=== PATIENT | female | born 1965 | race Caucasian/White ===

== ENCOUNTER 2024-01-11 22:45 | Inpatient (IN) | payer OTHER, SELFPAY ==
[2024-01-11 23:14] VITALS: BP 147/80; PULSE 82; RESP 16; TEMP 36.7; O2SAT 95; BMI 32.1
[2024-01-12 00:16] VITALS: BMI 32.1
[2024-01-12] MEDS: buPROPion (SR) 150 MG Tablet.SA PO ×3 (00:22→20:59)
[2024-01-12] MEDS: Magnesium Chloride 64 MG Delay Rel.Tablet 128 MG PO ×3 (00:22→20:58)
[2024-01-12] MEDS: APIXABAN 2.5 MG TABLET (WCH) PO ×3 (00:23→20:58)
[2024-01-12] MEDS: HYDROcodone Bitartrate/Apap 5/325 Tablet PO ×4 (00:26→20:57)
[2024-01-12 05:58] LABS: Hematocrit 29.4 % (37-47); Hemoglobin 9.4 g/dL (12.0-15.0); Mean Corpuscular Hgb 30.6 pg (27.0-32.0); Mean Corpuscular Volume 95.8 fL (81-99); Mean Platelet Vol. 10.9 fl (6.2-12.0); Platelet Count 172 K/mm3 (150-450); RBC Distribution Width CV 12.9 % (11.6-14.6); RBC Distribution Width SD 44.3 fl (35.1-43.9); Red Blood Count 3.07 M/mm3 (4.2-5.4); White Blood Count 4.6 K/mm3 (4.4-11.0)
[2024-01-12 06:00] VITALS: BP 119/58; PULSE 78; RESP 16; TEMP 36.1; O2SAT 93
[2024-01-12 07:07] LABS: AST(SGOT) 18 U/L (15-37); Alanine Aminotransfer ALT/SGPT 15 U/L (13-56); Albumin, Serum 2.9 g/dL (3.2-5.0); Alkaline Phosphatase 46 U/L (45-117); Anion Gap 4 (5-15); BUN 13 mg/dL (7-18); BUN/Creat Ratio 18.3 RATIO (10-20); Calcium,Total 8.4 mg/dL (8.5-10.1); Chloride 110 mmol/L (98-107); Creatinine, Serum 0.71 mg/dL (0.55-1.02); EST Glomerular Filtration Rate 90 mL/min (>60); Est Glom Filt Rate - Afr Amer 109 mL/min (>60); Estimated Creatinine Clearance 95.45 ml/min; Globulin 2.9 g/dL (2.2-4.2); Glucose 97 mg/dL (74-106); Phosphorus 3.1 mg/dL (2.5-4.9); Potassium 3.3 mmol/L (3.5-5.1); Protein, Total 5.8 g/dL (6.4-8.2); Sodium Level 142 mmol/L (136-145)
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
[2024-01-12] MEDS: Senna/Docusate Sodium 1 Tablet 2 TABLET PO (08:27)
[2024-01-12] MEDS: Pantoprazole Sodium 40 MG Tablet PO (08:27)
[2024-01-12] MEDS: Calcium Carb/Vitamin D 1 TABLET Tablet PO (08:27)
[2024-01-12] MEDS: Potassium Chloride Oral Tablet 20 MEQ 40 MEQ PO (08:39)
--- NOTE | 2024-01-12 15:58 | PCM.RU.PYE ---
Admission Information Primary Diagnosis:: Left open tibia fracture, left distal radius fracture. Status Changes from Prescreening?: No changes Identified Actual Problem List:: Skin Intergrity, Pain, ALteration in Cmfrt, Alteration in Nutrition, Mobility Impaired, Ineffective Communication, Know.Dfct/Disease Process, Know.Dfct of Medicaitons and Alteration-Leisure Activ. Potential Problem List:: DVT, Bleeding, Infection, UTI, Aspiration, Falls, Skin Integrity and Depression Risk of Complications DVT: LMWH Bleeding: Monitor Lab Values, Nursing to Teach Precautions for anti-coagulation therapy., Wound, if applicable, to be assessed every shift. and Stroke patients assessed for lethargy or change in status. Infection: Clinical Staff to Monitor for S/S of infection: and S/S of infection include fever, redness, warmth, etc. Urinary Tract Infection: Monitor for frequency, burning, discomfort, or incontinence. and Nursing will obtain urine sample for urinalysis and C&S when ordered. Aspiration: Clinical staff will monitor for coughing, drooling, congestion., Speech will evaluate swallowing and dsyphasia. and Nursing will monitor patient swallowing during meals. Falls: Patient will be evaluated for Fall Precautions and Patient will be placed on Fall Precautions as indicated per protocol. Skin Breakdown: Nursing will assess skin daily using assessment tool. and Nursing will place on Skin Breakdown Precautions as indicated. Pain: Clinical staff will assess patient's pain level per protocol., Medications will be given, if needed, and the pain level reassessed. and Other methods: Massage, distraction, decrease stimulus, etc. used PRN. Plan of Care Patient requires physician specializing in physical medicine and rehab oversight to provide close medical supervision of rehab issues including: Pain Management, Sleep Problems, Bowel and Bladder, Medical and co-morbidity Management, DVT prophylaxis, Rehabilitation Leadership and Coordination of treatment team Patient needs Physical Therapy: At least 5 out of 7 days and For a minimum of 1.5 hrs Patient needs Physical Therapy to improve:: Mobility, Strengthening, Transfers, Stretching, ROM, Endurance, Stairs, Gait and Balance Patient needs Occupational Therapy: At least 5 out of 7 days and For a minimum of 1.5 hrs Patient needs Occupational Therapy to improve ADL's incl.: Eating, Grooming, Bathing, Dressing, Toileting, Toilet transfers, Community Reintegration, Higher functioning activities, Household tasks, Adaptive Equipment, Splinting and Other activities as determined Patient requires 24/7 Rehabilitation Nursing for: Pain Issues, Identifying and preventing risk factors, Monitoring and reporting current medical conditions, Assisting with ambulation, transfer, and all ADL's, Teaching patients about disease process and medications, Family teaching, Providing safe environment, Bowel and Bladder Issues, Skin integrity and Medication Management Patient needs Management Department Chair/ Case Management for: Discharge Planning, Arranging Home Equipment or Services and Family Interventions Patient needs Dietary and Nutrition Services for: Adequate Nutrition, Nutritional Supplements and Nutritional Education Goals Goals Patient will remain: free from falls and or injury at time of discharge. Patient will complete upper body dressing at: - (Set up.) Patient will complete lower body dressing at: - (Set up with AE.) Patient will complete toilet transfer at: - (Sup.) Patient will complete toileting at: - (Sup.) Patient will perform bathing at: - (Min A.) Patient will perform Tub/Shower transfer at: - (Sup.) Patient will complete grooming at: - (Set up.) Patient's skin will: remain intact and free from infection. Patient will receive: adequate nutrition. Discharge Planning Pt Prognosis for Sig. Practical Improv. w/in Reasonable Time: Good Estimated Length of stay (days): 21 Anticipated D/C Destination: Home with Outpt Therapy Was Preadmission Assessment Accurate?: Yes
[2024-01-12 17:09] VITALS: BP 131/73; PULSE 75; RESP 17; TEMP 36.1; O2SAT 97
[2024-01-13 06:00] VITALS: BP 134/79; PULSE 70; RESP 16; TEMP 36.3; O2SAT 92
[2024-01-13 07:45] LABS: Anion Gap 6 (5-15); BUN 14 mg/dL (7-18); BUN/Creat Ratio 18.2 RATIO (10-20); Calcium,Total 9.3 mg/dL (8.5-10.1); Chloride 105 mmol/L (98-107); Creatinine, Serum 0.77 mg/dL (0.55-1.02); EST Glomerular Filtration Rate 82 mL/min (>60); Est Glom Filt Rate - Afr Amer 100 mL/min (>60); Estimated Creatinine Clearance 88.01 ml/min; Glucose 111 mg/dL (74-106); Potassium 3.9 mmol/L (3.5-5.1); Sodium Level 138 mmol/L (136-145)
[2024-01-13] MEDS: Calcium Carb/Vitamin D 1 TABLET Tablet PO (07:53)
[2024-01-13] MEDS: Pantoprazole Sodium 40 MG Tablet PO (07:53)
[2024-01-13] MEDS: Magnesium Chloride 64 MG Delay Rel.Tablet 128 MG PO ×2 (07:53→20:13)
[2024-01-13] MEDS: APIXABAN 2.5 MG TABLET (WCH) PO ×2 (07:53→20:12)
[2024-01-13] MEDS: buPROPion (SR) 150 MG Tablet.SA PO ×2 (07:53→20:13)
[2024-01-13] MEDS: HYDROcodone Bitartrate/Apap 5/325 Tablet PO ×3 (07:56→20:01)
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
[2024-01-13] MEDS: NYSTATIN 500,000 UNIT/5 ML UDC 500000 UNIT PO ×4 (10:30→20:13)
--- NOTE | 2024-01-13 15:09 | CASEMGMT ---
Social Work Completed advanced directives with pt. HCPOA and LW copies placed on chart. Original and copy provided to pt. Patricia Kent ,CONSULTANT MUSIC GRAPHER
[2024-01-13 17:04] VITALS: BP 90/58; PULSE 83; RESP 16; TEMP 36.4; O2SAT 94
[2024-01-13] MEDS: Senna/Docusate Sodium 1 Tablet 2 TABLET PO (20:13)
[2024-01-13 22:00] VITALS: PULSE 83; RESP 16; O2SAT 94
[2024-01-14 06:28] VITALS: BP 112/54; PULSE 82; RESP 15; TEMP 36.4; O2SAT 95
[2024-01-14 06:58] VITALS: O2SAT 94
[2024-01-14] MEDS: APIXABAN 2.5 MG TABLET (WCH) PO ×2 (09:49→20:18)
[2024-01-14] MEDS: Pantoprazole Sodium 40 MG Tablet PO (09:49)
[2024-01-14] MEDS: buPROPion (SR) 150 MG Tablet.SA PO ×2 (09:49→20:18)
[2024-01-14] MEDS: Calcium Carb/Vitamin D 1 TABLET Tablet PO (09:49)
[2024-01-14] MEDS: Magnesium Chloride 64 MG Delay Rel.Tablet 128 MG PO ×2 (09:49→20:18)
[2024-01-14] MEDS: HYDROcodone Bitartrate/Apap 5/325 Tablet PO ×3 (09:50→20:17)
[2024-01-14] MEDS: NYSTATIN 500,000 UNIT/5 ML UDC 500000 UNIT PO ×4 (09:51→20:18)
[2024-01-14] MEDS: Senna/Docusate Sodium 1 Tablet 2 TABLET PO ×2 (09:52→20:18)
[2024-01-14 18:00] VITALS: BP 105/67; PULSE 76; RESP 16; TEMP 37.2; O2SAT 96
[2024-01-14 20:06] VITALS: PULSE 76; RESP 16; O2SAT 95
[2024-01-15 06:00] VITALS: BP 94/61; PULSE 82; RESP 16; TEMP 36.8; O2SAT 95
[2024-01-15] MEDS: Senna/Docusate Sodium 1 Tablet 2 TABLET PO (07:45)
[2024-01-15] MEDS: APIXABAN 2.5 MG TABLET (WCH) PO ×2 (07:45→21:49)
[2024-01-15] MEDS: Magnesium Chloride 64 MG Delay Rel.Tablet 128 MG PO ×2 (07:45→21:48)
[2024-01-15] MEDS: Calcium Carb/Vitamin D 1 TABLET Tablet PO (07:46)
[2024-01-15] MEDS: buPROPion (SR) 150 MG Tablet.SA PO ×2 (07:46→21:48)
[2024-01-15] MEDS: Pantoprazole Sodium 40 MG Tablet PO (07:46)
[2024-01-15 08:01] VITALS: O2SAT 95
[2024-01-15] MEDS: HYDROcodone Bitartrate/Apap 5/325 Tablet PO ×3 (09:24→21:49)
[2024-01-15] MEDS: NYSTATIN 500,000 UNIT/5 ML UDC 500000 UNIT PO ×4 (09:25→21:48)
[2024-01-15 19:18] VITALS: BP 112/69; PULSE 85; RESP 16; TEMP 36.6; O2SAT 97
[2024-01-15 19:55] VITALS: PULSE 83; RESP 16; O2SAT 97
[2024-01-16 06:00] VITALS: BP 116/82; PULSE 86; RESP 18; TEMP 36.6; O2SAT 96
[2024-01-16] MEDS: Magnesium Chloride 64 MG Delay Rel.Tablet 128 MG PO ×2 (07:33→19:58)
[2024-01-16] MEDS: NYSTATIN 500,000 UNIT/5 ML UDC 500000 UNIT PO ×4 (07:33→19:59)
[2024-01-16] MEDS: Pantoprazole Sodium 40 MG Tablet PO (07:33)
[2024-01-16] MEDS: buPROPion (SR) 150 MG Tablet.SA PO ×2 (07:33→19:59)
[2024-01-16] MEDS: HYDROcodone Bitartrate/Apap 5/325 Tablet PO ×3 (07:33→19:59)
[2024-01-16] MEDS: APIXABAN 2.5 MG TABLET (WCH) PO ×2 (07:33→19:59)
[2024-01-16] MEDS: Calcium Carb/Vitamin D 1 TABLET Tablet PO (07:33)
--- NOTE | 2024-01-16 08:47 | CASEMGMT ---
Social Work IDT met with patient and for Team meeting. Discussed patient's progress in PT/OT/SN. Educated to O CM Insurance with [employer] 01/16 and continued stay is not guaranteed with each review. is getting a ramp installed for the entry steps. Pt can remain on the main level. Recommending w/c, left platform FWW, and BSC. Pt nor MIL has these and will need coordinated at [place]. to purchase half bedside rail for home. asking multiple questions to prepare for home and ensure pt can complete tasks. 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 SW offered HHC vs OP therapy. Pt prefers HHC. SW to provide list of options and will coordinate DME needs through [facility]. SW sent referral to [facility] for all DME via [employer], to check on insurance coverage for both platform walker and w/c. Will continue to follow and will ReTeam weekly. IDT is recommending continued stay to optimize functional abilities since does work full-time. Patricia Kent RN PERITONEAL DIALYSIS WASH HELPER
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
--- NOTE | 2024-01-16 16:05 | RAD_ITS ---
STUDY: X-RAY - LEFT TIBIA AND FIBULA REASON FOR EXAM: Female, 58 years old. L tibia ORIF f/u TECHNIQUE: 2 view(s) of the tibia and fibula were obtained. COMPARISON: None. FINDINGS: An intramedullary sadie is seen along the tibia. Distal tibial fracture is in anatomic alignment and position. Fractures of the proximal and distal fibula, and near anatomic alignment and position. The soft tissue structures are unremarkable. RAD/Tibia & Fibula 2 Views IMPRESSION: Fractures of the distal tibia in anatomic alignment and position status post ORIF. Electronically Signed: Jean-Claude Dunbar MD at 16:49 EDT ,
[2024-01-16 18:00] VITALS: BP 123/70; PULSE 80; RESP 18; TEMP 36.3; O2SAT 96
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
[2024-01-17 06:00] VITALS: BP 112/75; PULSE 85; RESP 18; TEMP 36.4; O2SAT 97
[2024-01-17] MEDS: HYDROcodone Bitartrate/Apap 5/325 Tablet PO ×2 (06:12→14:26)
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
[2024-01-17] MEDS: buPROPion (SR) 150 MG Tablet.SA PO ×2 (10:37→21:35)
[2024-01-17] MEDS: Pantoprazole Sodium 40 MG Tablet PO (10:37)
[2024-01-17] MEDS: Calcium Carb/Vitamin D 1 TABLET Tablet PO (10:37)
[2024-01-17] MEDS: Magnesium Chloride 64 MG Delay Rel.Tablet 128 MG PO ×2 (10:37→21:35)
[2024-01-17] MEDS: NYSTATIN 500,000 UNIT/5 ML UDC 500000 UNIT PO ×4 (10:37→21:35)
[2024-01-17] MEDS: APIXABAN 2.5 MG TABLET (WCH) PO ×2 (10:38→21:35)
--- NOTE | 2024-01-17 11:02 | NURSING ---
Called Dr. Kay's office to update him that X-rays were completed. Left message with medical office receptionist assistant.
[2024-01-17 18:00] VITALS: BP 105/58; PULSE 79; RESP 16; TEMP 36.6; O2SAT 96
[2024-01-18 05:55] VITALS: BP 90/40; PULSE 79; RESP 18; TEMP 36.6; O2SAT 95
[2024-01-18 06:00] VITALS: BMI 32.1
[2024-01-18] MEDS: HYDROcodone Bitartrate/Apap 5/325 Tablet PO ×3 (06:01→21:53)
[2024-01-18] MEDS: NYSTATIN 500,000 UNIT/5 ML UDC 500000 UNIT PO ×3 (07:57→20:07)
[2024-01-18] MEDS: Pantoprazole Sodium 40 MG Tablet PO (07:58)
[2024-01-18] MEDS: Calcium Carb/Vitamin D 1 TABLET Tablet PO (07:58)
[2024-01-18] MEDS: buPROPion (SR) 150 MG Tablet.SA PO ×2 (07:58→20:08)
[2024-01-18] MEDS: APIXABAN 2.5 MG TABLET (WCH) PO ×2 (07:58→20:06)
[2024-01-18] MEDS: Magnesium Chloride 64 MG Delay Rel.Tablet 128 MG PO ×2 (07:58→20:07)
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
[2024-01-18 17:54] VITALS: BP 93/47; PULSE 82; RESP 16; TEMP 36.6; O2SAT 99
[2024-01-19 06:00] VITALS: BP 125/63; PULSE 66; RESP 16; TEMP 36.7; O2SAT 96
[2024-01-19] MEDS: buPROPion (SR) 150 MG Tablet.SA PO ×2 (08:25→21:16)
[2024-01-19] MEDS: APIXABAN 2.5 MG TABLET (WCH) PO ×2 (08:25→21:17)
[2024-01-19] MEDS: NYSTATIN 500,000 UNIT/5 ML UDC 500000 UNIT PO ×4 (08:25→21:15)
[2024-01-19] MEDS: Magnesium Chloride 64 MG Delay Rel.Tablet 128 MG PO ×2 (08:26→21:15)
[2024-01-19] MEDS: Calcium Carb/Vitamin D 1 TABLET Tablet PO (08:26)
[2024-01-19] MEDS: Pantoprazole Sodium 40 MG Tablet PO (08:26)
[2024-01-19] MEDS: HYDROcodone Bitartrate/Apap 5/325 Tablet PO ×3 (08:30→21:16)
[2024-01-19 18:00] VITALS: BP 119/76; PULSE 85; RESP 16; TEMP 36.8; O2SAT 96
[2024-01-19 20:25] VITALS: PULSE 85; RESP 16; O2SAT 96
[2024-01-20 06:00] VITALS: BP 140/78; PULSE 71; RESP 16; TEMP 36.3; O2SAT 96
[2024-01-20] MEDS: Magnesium Chloride 64 MG Delay Rel.Tablet 128 MG PO ×2 (07:47→21:27)
[2024-01-20] MEDS: NYSTATIN 500,000 UNIT/5 ML UDC 500000 UNIT PO ×4 (07:47→21:27)
[2024-01-20] MEDS: Calcium Carb/Vitamin D 1 TABLET Tablet PO (07:47)
[2024-01-20] MEDS: Pantoprazole Sodium 40 MG Tablet PO (07:47)
[2024-01-20] MEDS: buPROPion (SR) 150 MG Tablet.SA PO ×2 (07:47→21:27)
[2024-01-20] MEDS: APIXABAN 2.5 MG TABLET (WCH) PO ×2 (07:47→21:27)
[2024-01-20] MEDS: HYDROcodone Bitartrate/Apap 5/325 Tablet PO ×4 (07:50→21:27)
[2024-01-20 18:00] VITALS: BP 91/57; PULSE 79; RESP 17; TEMP 36.1; O2SAT 96
[2024-01-20 22:00] VITALS: PULSE 76; RESP 16; O2SAT 96
[2024-01-21 05:40] VITALS: BP 126/64; PULSE 67; RESP 16; TEMP 36.7; O2SAT 97
[2024-01-21] MEDS: Magnesium Chloride 64 MG Delay Rel.Tablet 128 MG PO ×2 (08:05→21:41)
[2024-01-21] MEDS: APIXABAN 2.5 MG TABLET (WCH) PO ×2 (08:05→21:41)
[2024-01-21] MEDS: Calcium Carb/Vitamin D 1 TABLET Tablet PO (08:05)
[2024-01-21] MEDS: Pantoprazole Sodium 40 MG Tablet PO (08:05)
[2024-01-21] MEDS: buPROPion (SR) 150 MG Tablet.SA PO ×2 (08:05→22:22)
[2024-01-21] MEDS: NYSTATIN 500,000 UNIT/5 ML UDC 500000 UNIT PO ×4 (08:05→21:40)
[2024-01-21 17:28] VITALS: BP 109/62; PULSE 80; RESP 16; TEMP 36.2; O2SAT 98
[2024-01-21] MEDS: HYDROcodone Bitartrate/Apap 5/325 Tablet PO (21:41)
[2024-01-22 06:00] VITALS: BP 112/59; PULSE 76; RESP 17; TEMP 36.7; O2SAT 99
[2024-01-22] MEDS: APIXABAN 2.5 MG TABLET (WCH) PO ×2 (07:46→21:51)
[2024-01-22] MEDS: Pantoprazole Sodium 40 MG Tablet PO (07:46)
[2024-01-22] MEDS: NYSTATIN 500,000 UNIT/5 ML UDC 500000 UNIT PO ×4 (07:46→21:51)
[2024-01-22] MEDS: Magnesium Chloride 64 MG Delay Rel.Tablet 128 MG PO ×2 (07:46→21:51)
[2024-01-22] MEDS: buPROPion (SR) 150 MG Tablet.SA PO ×2 (07:46→21:56)
[2024-01-22] MEDS: Calcium Carb/Vitamin D 1 TABLET Tablet PO (07:47)
[2024-01-22] MEDS: HYDROcodone Bitartrate/Apap 5/325 Tablet PO ×2 (13:54→21:50)
[2024-01-22 17:41] VITALS: BP 103/58; PULSE 72; RESP 18; TEMP 36.6; O2SAT 97
[2024-01-23 06:46] VITALS: BP 122/66; PULSE 81; RESP 16; TEMP 36.6; O2SAT 98
[2024-01-23] MEDS: Magnesium Chloride 64 MG Delay Rel.Tablet 128 MG PO ×2 (07:37→21:02)
[2024-01-23] MEDS: NYSTATIN 500,000 UNIT/5 ML UDC 500000 UNIT PO (07:37)
[2024-01-23] MEDS: Calcium Carb/Vitamin D 1 TABLET Tablet PO (07:37)
[2024-01-23] MEDS: APIXABAN 5 MG TABLET PO ×2 (07:37→21:01)
[2024-01-23] MEDS: buPROPion (SR) 150 MG Tablet.SA PO ×2 (07:37→21:02)
[2024-01-23] MEDS: Pantoprazole Sodium 40 MG Tablet PO (07:37)
[2024-01-23] MEDS: HYDROcodone Bitartrate/Apap 5/325 Tablet PO ×3 (07:40→21:59)
--- NOTE | 2024-01-23 08:06 | CASEMGMT ---
Addendum entered by Patricia Kent 01/23/24 15:10: SW spoke with pt to update on DC date and DME. Pt agreeable. Addendum entered by Patricia Kent 01/23/24 14:59: Insurance issued DC 01/24. SW updated [employer]. Intake has still not provided an answer on insurance covering both the w/c and platform walker. [employer] will deliver both to the room, and if insurance does not cover both items, then the pt will be billed for the platform walker at $77.31. The BSC will be delivered to the home, per pt request. SW updated [facility] - who can accept. SW left VM with and pt. IDT updated. PLAN: DC home with 01/24, [facility] PT/OT, w/c, left platform FWW, [facility] BSC Addendum entered by Patricia Kent 01/23/24 10:13: Pt prefers [facility], [facility]. SW referred to [facility] via [facility]. Pt has ortho appt 01/25 at 1300. Original Note: Social Work IDT met with patient and for Team meeting. Discussed patient's progress in PT/OT/SN. Educated to MMO CM insurance with [employer] 01/22 and continued stay is not guaranteed with each review. Pt is requesting to set DC date after participate in therapy training last week. has FMLA and can assist pt at home. SW will await [employer]'s response for DME coverage and availability for delivery; then can set DC date. Pt appreciative. SW provided printed list of skilled HHC agencies including quality and resource data via [employer]Port Guide for pt to select agency at DC. SW will continue to follow for DC planning. Patricia Kent, [employer]
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
[2024-01-23 11:05] LABS: Absolute Lymphocyte Count 1.86 X10^3/uL (0.83-4.51); Absolute Neutrophil Count 6.3 X10^3/uL (2.0-7.7); Basophil% 1.1 % (0-1); Eosinophil# 0.14 X10^3/uL; Eosinophils% 1.5 % (0-5); Hemoglobin 12.3 g/dL (12.0-15.0); Lymphocyte # 1.86 X10^3/ul (0.83-4.51); Mean Corp Hgb Conc 30.8 g/dL (32-36); Mean Corpuscular Hgb 29.4 pg (27.0-32.0); Mean Corpuscular Volume 95.7 fL (81-99); Mean Platelet Vol. 10.7 fl (6.2-12.0); Monocyte# 0.86 X10^3/uL; Monocyte% 9.3 % (0-10); NRBC Flagged by Analyzer 0 % (0-5); Neutrophil # 6.27 X10^3/uL (2.7-7.7); Neutrophil % 67.6 % (47-70); Platelet Count 336 K/mm3 (150-450); RBC Distribution Width CV 13.7 % (11.6-14.6); RBC Distribution Width SD 48.1 fl (35.1-43.9); Red Blood Count 4.18 M/mm3 (4.2-5.4); White Blood Count 9.3 K/mm3 (4.4-11.0)
[2024-01-23 11:19] LABS: ALB/GLOB Ratio 1.1 RATIO (0.9-2.4); AST(SGOT) 14 U/L (15-37); Alanine Aminotransfer ALT/SGPT 19 U/L (13-56); Albumin, Serum 3.9 g/dL (3.2-5.0); Alkaline Phosphatase 78 U/L (45-117); Anion Gap 8 (5-15); BUN 17 mg/dL (7-18); BUN/Creat Ratio 20.9 RATIO (10-20); Calcium,Total 9.7 mg/dL (8.5-10.1); Chloride 106 mmol/L (98-107); Creatinine, Serum 0.81 mg/dL (0.55-1.02); EST Glomerular Filtration Rate 77 mL/min (>60); Est Glom Filt Rate - Afr Amer 93 mL/min (>60); Estimated Creatinine Clearance 83.66 ml/min; Globulin 3.7 g/dL (2.2-4.2); Glucose 99 mg/dL (74-106); Potassium 4.1 mmol/L (3.5-5.1); Protein, Total 7.6 g/dL (6.4-8.2); Sodium Level 140 mmol/L (136-145)
[2024-01-23 17:14] VITALS: BP 106/60; PULSE 82; RESP 16; TEMP 36.4; O2SAT 96
[2024-01-23 22:00] VITALS: PULSE 83; RESP 16; O2SAT 96
[2024-01-24 06:32] VITALS: BP 112/65; PULSE 79; RESP 16; TEMP 36.3; O2SAT 97
[2024-01-24] MEDS: Calcium Carb/Vitamin D 1 TABLET Tablet PO (07:37)
[2024-01-24] MEDS: Pantoprazole Sodium 40 MG Tablet PO (07:37)
[2024-01-24] MEDS: APIXABAN 5 MG TABLET PO ×2 (07:37→21:18)
[2024-01-24] MEDS: buPROPion (SR) 150 MG Tablet.SA PO ×2 (07:38→21:18)
[2024-01-24] MEDS: Magnesium Chloride 64 MG Delay Rel.Tablet 128 MG PO ×2 (07:38→21:18)
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
[2024-01-24 17:07] VITALS: BP 96/51; PULSE 83; RESP 17; TEMP 36.3; O2SAT 95
[2024-01-24] MEDS: HYDROcodone Bitartrate/Apap 5/325 Tablet PO (21:17)
[2024-01-24 22:00] VITALS: PULSE 83; RESP 17; O2SAT 95
[2024-01-25 06:00] VITALS: BP 111/59; PULSE 71; RESP 16; TEMP 36.4; O2SAT 97; BMI 31.3
[2024-01-25] MEDS: buPROPion (SR) 150 MG Tablet.SA PO (07:45)
[2024-01-25] MEDS: Magnesium Chloride 64 MG Delay Rel.Tablet 128 MG PO (07:45)
[2024-01-25] MEDS: Pantoprazole Sodium 40 MG Tablet PO (07:45)
[2024-01-25] MEDS: Calcium Carb/Vitamin D 1 TABLET Tablet PO (07:45)
[2024-01-25] MEDS: APIXABAN 5 MG TABLET PO (07:46)
--- NOTE | 2024-01-25 11:16 | CASEMGMT ---
Social Work- SW met with pt to discuss d/c plans for today. Pt will be d/c with [facility]. SW provided contact information per pt request to allow pt to advise HHC of d/c. SW provided contact information for pt to establish patient portal per pt request. SW conducted BIMS assessment; score 15/15 and PHQ9 assessment ; score 0/2. Pt agreed to d/c and signed MMO. Pt requested to take bed devi, as BSC is still being shipped; pt permitted per bedside RN. Pt states no other needs at this time. Plan: Home with [facility] ANDREE Urbina
[2024-01-25] MEDS: HYDROcodone Bitartrate/Apap 5/325 Tablet PO (12:20)
--- NOTE | 2024-01-25 14:06 | NURSING ---
discharged home with family. discharged instructions, medications and appointments reviewed with pt. denies question or concerns
[2024-01-25 14:07] VITALS: BP 111/59; PULSE 71; RESP 16; TEMP 36.4; O2SAT 97
== END 2024-01-25 14:09 | disposition home health service (06) | DRG 560 ==
PROVIDERS: Admitting Provider Family Medicine Geriatric Medicine; Visit Provider Family Medicine Geriatric Medicine
DX: S82.202E Unspecified fracture of shaft of left tibia, subsequent encounter for open fracture type I or II with routine healing (principal); D68.51 Activated protein C resistance; B37.0 Candidal stomatitis; E87.6 Hypokalemia; F41.9 Anxiety disorder, unspecified; K21.9 Gastro-esophageal reflux disease without esophagitis; E83.42 Hypomagnesemia; Z87.891 Personal history of nicotine dependence; Z79.01 Long term (current) use of anticoagulants; V29.99XD Rider (driver) (passenger) of other motorcycle injured in unspecified traffic accident, subsequent encounter; S52.502D Unspecified fracture of the lower end of left radius, subsequent encounter for closed fracture with routine healing; Z86.711 Personal history of pulmonary embolism; Z79.899 Other long term (current) drug therapy
CPT/HCPCS: 36415; 73110; 73590; 80048; 80053; 83735; 84100; 85025; 85027; 97110; 97162; 97166; 97530; 97535; 97542; 97802; 97803